=== PATIENT | male | born 1955 | race Caucasian/White ===

== ENCOUNTER → 2019-06-22 | Outpatient (CLI) | payer OTHER ==
[2016-03-20 18:00] VITALS: BP 114/68
[~2019-06-22] MED LIST: HYDR12.575 PO; LISD70CA5 PO; OXYC30TA3 PO; OXYC80TA16 PO
[2019-06-22 15:23] LABS: BARBITURATES NEG (NEG); BENZODIAZEPINES NEG (NEG); CANNABINOIDS NEG (NEG); COCAINE NEG (NEG); METHADONE NEG (NEG); OPIATES NEG (NEG); PHENCYCLIDINE NEG (NEG)
[2019-06-22 15:33] LABS: AMPHETAMINE/METHAMPHETAMINE POS (NEG)
== END | disposition home or self-care (01) ==
LOC: LAB 14:47
PROVIDERS: ATTEND Psychiatry & Neurology Neurology with Special Qualifications in Child Neurology
DX: F11.90 Opioid use, unspecified, uncomplicated (principal); Z79.899 Other long term (current) drug therapy
CPT/HCPCS: 80307

== ENCOUNTER → 2020-01-29 | Outpatient (CLI) | payer OTHER ==
[2016-03-20 18:00] VITALS: BP 114/68
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
== END ==
LOC: PNCL 10:53
PROVIDERS: ATTEND Anesthesiology
DX: I10 Essential (primary) hypertension (principal); M19.90 Unspecified osteoarthritis, unspecified site
CPT/HCPCS: G0463